=== PATIENT | male | born 1980 | race Hispanic/Latino ===

== ENCOUNTER 2018-06-21 01:57 | Emergency (ER) | payer BC ==
[~2018-06-21] VITALS: Ht 167.6 cm; Wt 86.2 kg
[2018-06-21] MEDS ORDERED: KETOROLAC TROMETHAMINE 60 MG/2 ML VIAL IM ONE (02:30)
== END 2018-06-21 03:25 | disposition home or self-care (01) ==
LOC: ER 01:57
DX: M54.5 Low back pain (principal); S39.012A Strain of muscle, fascia and tendon of lower back, initial encounter; M94.0 Chondrocostal junction syndrome [Tietze]
CPT/HCPCS: 99282; J1885